=== PATIENT | male | born 1960 | race Caucasian/White ===

== ENCOUNTER 2018-02-10 11:52 | Emergency (ER) | END 2018-02-10 13:30 | disposition home or self-care (01) ==

== ENCOUNTER 2018-10-30 13:22 | Emergency (ER) | payer OTHER ==
[~2018-10-30] VITALS: Ht 182.9 cm; Wt 81.8 kg
[~2018-10-30 13:22] MED LIST: ALPR1TAB7 PO; HYDR-4011 PO; NAPR-985 PO
[2018-10-30 13:28] VITALS: Ht 182.9 cm; Wt 81.8 kg
[2018-10-30] MEDS ORDERED: VANCOMYCIN 1 GM (PMX) 250 ML IVPB ONE (14:30)
[2018-10-30] MEDS ORDERED: ACET500C5 PO (17:15)
[2018-10-30] MEDS ORDERED: MUPI22OI2 TOP (17:15)
[2018-10-30] MEDS ORDERED: SULF1TAB31 PO (17:15)
[2018-10-30] MEDS ORDERED: CEPH-443 PO (17:16)
--- NOTE | 2018-10-30 17:18 | ERD ---
ER Documentation Chief Complaint Chief Complaint skin rashes/wounds HPI 58-year-old male presents with oozing skin lesions on his shins and calves for the last week. He is here with his partner with similar symptoms. He has had scattered lesions on his arms as well with some healing spontaneously. There is been no history of fevers, vomiting, shortness of breath, additional symptoms. Patient has been living in hotels with his spouse and intermittently homeless. ROS All systems reviewed and are negative except as per history of present illness. Medications Home Meds Active Scripts Cephalexin* (Keflex*) 500 Mg Capsule, 500 MG PO QID for 7 Days, CAP Prov:JILL MONTIEL MD 10/30/18 Acetaminophen* (Tylophen*) 500 Mg Capsule, 1 CAP PO Q6H PRN for PAIN AND OR ELEVATED TEMP, #20 CAP Prov:JILL MONTIEL MD 10/30/18 Mupirocin* (Bactroban*) 2% -22 Gram Oint...g., 1 APPLIC TOP BID for 7 Days, EA Prov:JILL MONTIEL MD 10/30/18 Sulfamethoxazole/Trimethoprim* (Bactrim Ds* Tablet) 1 Each Tablet, 1 TAB PO BID for 7 Days, #14 TAB Prov:JILL MONTIEL MD 10/30/18 Alprazolam* (Alprazolam*) 1 Mg Tablet, 1 MG PO Q8H PRN for ANXIETY, #3 TAB Prov:HOSSEIN ALVARADO PA-C 02/10/18 Hydrocodone/Acetaminophen ([place] 5-325 Tablet) 1 Each Tablet, 1 TAB PO Q6H PRN for PAIN, #20 TAB Prov:ALFREDO RAY PA-C 07/05/16 Naproxen* (Naprosyn*) 500 Mg Tablet, 500 MG PO BID PRN for PAIN AND/OR INFLAMMATION, #30 TAB Prov:ALFREDO RAY PA-C 07/05/16 Allergies Allergies: Coded Allergies: No Known Allergy (Unverified , 10/30/18) PMhx/Soc History of Surgery: Yes (back) Anesthesia Reaction: No Hx Neurological Disorder: No Hx Respiratory Disorders: No Hx Cardiac Disorders: No Hx Psychiatric Problems: Yes (Anxiety) Hx Miscellaneous Medical Probl: No Hx Alcohol Use: No Hx Substance Use: Yes (?) Hx Tobacco Use: No Smoking Status: Never smoker FmHx Family History: No diabetes, No coronary disease, No other Physical Exam Vitals Vital Signs Date Temp Pulse Resp B/P (MAP) Pulse Ox O2 O2 Flow FiO2 Time Delivery Rate 10/30/18 98.4 79 19 130/70 97 13:28 (90) Physical Exam Const: No acute distress Head: Atraumatic Eyes: Normal Conjunctiva ENT: Normal External Ears, Nose and Mouth. Neck: Full range of motion. No meningismus. Resp: Clear to auscultation bilaterally Cardio: Regular rate and rhythm, no murmurs Abd: Soft, non tender, non distended. Normal bowel sounds Skin: No petechiae or rashes Back: No midline or flank tenderness Ext: No cyanosis, or edema. Bruising approximately 1 cm superficial ulcerative lesions with surrounding erythema the bilateral shins. No bony tenderness or deformities. No restricted range of motion weakness. Neur: Awake and alert Psych: Normal Mood and Affect Result Diagram: 10/30/18 1438 10/30/18 1438 Results 24 hrs Laboratory Tests Test 10/30/18 14:38 White Blood Count 8.9 10^3/ul Red Blood Count 4.46 10^6/ul Hemoglobin 12.9 g/dl Hematocrit 39.9 % Mean Corpuscular Volume 89.5 fl Mean Corpuscular Hemoglobin 28.9 pg Mean Corpuscular Hemoglobin Concent 32.3 g/dl Red Cell Distribution Width 13.3 % Platelet Count 506 10^3/UL Mean Platelet Volume 9.6 fl Immature Granulocytes % 0.500 % Neutrophils % 70.1 % Lymphocytes % 17.6 % Monocytes % 9.8 % Eosinophils % 1.5 % Basophils % 0.5 % Nucleated Red Blood Cells % 0.0 /100WBC Immature Granulocytes # 0.040 10^3/ul Neutrophils # 6.2 10^3/ul Lymphocytes # 1.6 10^3/ul Monocytes # 0.9 10^3/ul Eosinophils # 0.1 10^3/ul Basophils # 0.0 10^3/ul Nucleated Red Blood Cells # 0.0 10^3/ul Sodium Level 139 mmol/L Potassium Level 3.2 mmol/L Chloride Level 100 mmol/L Carbon Dioxide Level 29 mmol/L Anion Gap 10 Blood Urea Nitrogen 5 mg/dl Creatinine 0.82 mg/dl Est Glomerular Filtrat Rate mL/min > 60 mL/min Glucose Level 106 mg/dl Calcium Level 9.2 mg/dl Total Bilirubin 0.5 mg/dl Direct Bilirubin 0.00 mg/dl Indirect Bilirubin 0.5 mg/dl Aspartate Amino Transf (AST/SGOT) 23 IU/L Alanine Aminotransferase (ALT/SGPT) 11 IU/L Alkaline Phosphatase 132 IU/L Total Protein 7.8 g/dl Albumin 3.9 g/dl Globulin 3.90 g/dl Albumin/Globulin Ratio 1.00 Current Medications Medications Dose Sig/Mia Start Time Status Last (Trade) Ordered Route PRN Stop Time Admin Dose Reason Admin Vancomycin 250 ml @ ONCE ONCE 10/30/18 DC 10/30/18 HCl 125 mls/hr IVPB 14:30 14:43 10/30/18 16:29 Procedures/MDM Patient presents with signs and symptoms of cellulitis of the bilateral lower extremities without signs of necrotizing fasciitis, sepsis, SIRS criteria, deficits, additional concerning signs or symptoms. He was given vancomycin 1 g IV, and will be treated with Bactrim, Keflex, Bactroban, recommendations for primary care follow-up and return precautions for worsening redness, fevers, new worsening symptoms. The patient was stable with no new complaints during the ER course. Clinically, there is no current evidence to suggest meningitis, sepsis, acute abdomen, pneumonia, stroke, acute coronary syndrome, pulmonary embolism, aortic dissection or any other emergent condition appearing to require further evaluation or hospitalization. Patient counseled regarding my diagnostic impression and care plan. Prior to discharge all questions answered. Pt agrees with treatment plan and understands strict return precautions. Pt is instructed to follow up with primary care provider within 24-48 hours. Precautionary i nstructions provided including instructions to return to the ER if not improving or for any worsening or changing symptoms or concerns. Departure Diagnosis: Primary Impression: Cellulitis Site of cellulitis: unspecified site Qualified Codes: L03.90 - Cellulitis, unspecified Condition: Stable Patient Instructions: Cellulitis Additional Instructions: Recheck for fevers, worsening redness, new worsening symptoms. JILL MONTIEL MD Oct 30, 2018 17:18
[2018-10-30 19:20] VITALS: BP 133/78; PULSE 60; RESP 19
== END 2018-10-30 19:20 | disposition home or self-care (01) ==
LOC: FTE 13:22
DX: L03.115 Cellulitis of right lower limb (principal); L03.116 Cellulitis of left lower limb
CPT/HCPCS: 36415; 80053; 85025; 96374; J3370; Z7502